=== PATIENT | male | born 1970 | race Caucasian/White ===

== ENCOUNTER 2020-02-19 12:24 | Emergency (ER) | payer SELFPAY ==
[2020-02-19] MEDS ORDERED: LACTULOSE 20 GM/30 ML UCUP ONE (13:04)
[2020-02-19 13:07] LABS: Absolute Lymphocytes (CBC) 1.7 K/uL (0.7-4.9); Hematocrit 42.7 % (39.6-49.0); Lymphocytes % 18.5 % (15.3-44.8); RBC Red Blood Cell Count 4.81 M/uL (4.33-5.43)
[2020-02-19] MEDS ORDERED: ASPIRIN 81 MG CHEWABLE TABLET ONE (13:09)
[2020-02-19 13:29] LABS: ALT/SGPT 35 U/L (12-78); AST/SGOT 17 U/L (15-37); Albumin 3.8 g/dL (3.4-5.0); Alkaline Phosphatase 95 U/L (45-117); BUN Blood Urea Nitrogen 16 mg/dL (7-18); Bicarbonate 28 mmol/L (21-32); Bilirubin Direct 0.1 mg/dL (0-0.2); Bilirubin Total 0.4 mg/dL (0.2-1.0); Glucose Level 112 mg/dL (74-106); NT PRO-BNP 14 pg/mL (<125); Potassium 4.5 mmol/L (3.5-5.1); Protein, Total 7.9 g/dL (6.4-8.2); Sodium Level 138 mmol/L (136-145); Troponin (Emerg Dept Use Only) < 0.02 ng/mL (0.0-0.045)
--- NOTE | 2020-02-19 14:02 | RAD REPORT ---
EXAM DESCRIPTION: RAD - Chest Single View - 02/19/2020 1:52 pm CLINICAL HISTORY: CHEST PAIN COMPARISON: None TECHNIQUE: AP portable chest image was obtained 02/19/2020 1:52 pm . FINDINGS: Lungs are clear. Heart and vasculature are normal. No measurable pleural effusion and no p neumothorax. No acute bony abnormality seen. No acute aortic findings suspected. IMPRESSION: No acute cardiopulmonary process.
--- NOTE | 2020-02-19 14:23 | ER ---
Nurse's Notes [facility] Name: Ra Trinidad Age: 49 yrs Sex: Male : 1970 Arrival Date: 02/19/2020 Time: 12:26 Bed 4 Private MD: Diagnosis: Chest pain, unspecified Presentation: 02/18 12:37 Chief complaint: Patient states: Mild intermittent chest pain for a couple days. Today ll1 while working on siding, chest pain got a lot worse with SOB. Radiation down left arm. Coronavirus screen: Proceed with normal triage. Patient denies a cough. Patient reports shortness of breath or difficulty breathing. Patient denies measured and/or subjective temperature greater than 100.4F prior to today's visit. Patient denies travel on a cruise ship or to a country the [facility] currently lists as an affected area. Patient denies contact with known and/or suspected case of COVID-19. Ebola Screen: Patient denies travel to an Ebola-affected area in the 21 days before illness onset. Initial Sepsis Screen: Does the patient meet any 2 criteria? HR > 90 bpm. No. Patient's initial sepsis screen is negative. Does the patient have a suspected source of infection? No. Patient's initial sepsis screen is negative. Risk Assessment: Do you want to hurt yourself or someone else? Patient reports no desire to harm self or others. Onset of symptoms was February 16, 2020. 12:37 Method Of Arrival: Ambulatory ll1 12:37 Acuity: NAV 3 ll1 Historical: - Allergies: 12:39 No Known Allergies; ll1 - PMHx: 12:39 None; ll1 - PSHx: 12:39 Tonsillectomy; ll1 - Social history:: Patient/guardian denies using alcohol, street drugs, tobacco products. - Family history:: not pertinent. - Hospitalizations: : No recent hospitalization is reported. Screenin:08 Abuse screen: Denies threats or abuse. Denies injuries from another. Nutritional sv screening: No deficits noted. Tuberculosis screening: No symptoms or risk factors identified. Fall Risk None identified. Assessment: 12:50 General: Appears in no apparent distress. comfortable, obese, well developed, Behavior sv is calm, cooperative, appropriate for age. Pain: Complains of pain in mid-sternal area Pain radiates to left arm Pain currently is 2 out of 10 on a pain scale. Pain began today Is intermittent. Neuro: Level of Consciousness is awake, alert, obeys commands, Oriented to person, place, time, situation, Moves all extremities. Full function Gait is steady. Cardiovascular: Patient's skin is warm and dry. Rhythm is sinus rhythm. Respiratory: Reports shortness of breath on exertion Airway is patent Respiratory effort is even, unlabored, Respiratory pattern is regular, symmetrical. Derm: Skin is pink, warm \T\ dry. Vital Signs: 12:37 BP 142 / 104; Pulse 105; Resp 18; Temp 97.4; Pulse Ox 99% ; Pain 2/10; ll1 13:07 BP 157 / 91; Pulse 95; Resp 20; Pulse Ox 97% on R/A; sv 14:00 BP 137 / 77; Pulse 88; Resp 20; Pulse Ox 98% ; sv ED Course: 12:26 Patient arrived in ED. am2 12:34 Victoria Pierre, SKYLAR is Primary Nurse. sv 12:38 Rayshawn Freeman MD is Attending Physician. rn 12:39 Triage completed. ll1 12:40 Arm band placed on Patient placed in an exam room, on a stretcher. ll1 12:44 EKG done, by ED staff, reviewed by Rayshawn Freeman MD. sv 12:50 Patient has correct armband on for positive identification. Placed in gown. Bed in low sv position. Call light in reach. environmental monitoring specialist on. Pulse ox on. NIBP on. 13:01 Basic Metabolic Panel Sent. [facility] 13:01 CBC with Diff Sent. [facility] 13:01 LFT's Sent. [facility] 13:01 Magnesium Sent. [facility] 13:01 NT PRO-BNP Sent. [facility] 13:01 PT-INR Sent. [facility] 13:01 Troponin (emerg Dept Use Only) Sent. 5 13:01 Initial lab(s) drawn, by ut, sent to lab. Inserted saline lock: 20 gauge in right 5 antecubital area, using aseptic technique. Blood collected. 13:48 XRAY Chest (1 view) Sent. sv 13:52 XRAY Chest (1 view) In Process Unspecified. EDMS 14:23 Giovanny Moran MD is Referral Physician. rn 15:08 No provider procedures requiring assistance completed. IV discontinued, intact, em bleeding controlled, No redness/swelling at site. Pressure dressing applied. Administered Medications: 13:07 Drug: Aspirin Chewable Tablet 324 mg Route: PO; sv 13:49 Follow up: Response: No adverse reaction sv Outcome: 14:23 Discharge ordered by . rn 15:08 Discharged to home ambulatory. em 15:08 Condition: good 15:08 Discharge instructions given to patient, Instructed on discharge instructions, follow up and referral plans. Demonstrated understanding of instructions, follow-up care. 15:08 Patient left the ED. em Signatures: Dispatcher [employer] Victoria Reilly RN RN sv Munoz, Edgar, RN RN Rayshawn Carson MD MD rn Martinez, Maria [facility] Pauline Jung Lynsay, RN RN 1
--- NOTE | 2020-02-19 14:23 | EDPHYS ---
Physician Documentation [facility] Name: Ra Trinidad Age: 49 yrs Sex: Male : 1970 Arrival Date: 02/19/2020 Time: 12:26 Bed 4 Private MD: ED Physician Rayshawn Freeman HPI: 02/18 13:55 This 49 yrs old Male presents to ER via Ambulatory with complaints of Chest rn Pain, Shortness Of Breath. 13:55 The patient or guardian reports chest pain that is located primarily in the substernal rn area, anterior chest wall. Onset: yesterday. The pain radiates to the left arm, the left shoulder. The chest pain is described as a heaviness, a pressure. Duration: The patient or guardian reports multiple episodes, that are intermittent, the episodes last approximately 15 minute(s). Modifying factors: The symptoms are alleviated by nothing. the symptoms are aggravated by nothing. Severity of pain: At its worst the pain was moderate in the emergency department the pain has improved. The patient has not experienced similar symptoms in the past. The patient has not recently seen a physician. Historical: - Allergies: 12:39 No Known Allergies; ll1 - PMHx: 12:39 None; ll1 - PSHx: 12:39 Tonsillectomy; ll1 - Social history:: Patient/guardian denies using alcohol, street drugs, tobacco products. - Family history:: not pertinent. - Hospitalizations: : No recent hospitalization is reported. ROS: 13:55 Constitutional: Negative for fever, chills, and weight loss, Eyes: Negative for injury, rn pain, redness, and discharge, Neck: Negative for injury, pain, and swelling, Cardiovascular: + chest pain Respiratory: + sob Abdomen/GI: + nausea MS/Extremity: Negative for injury and deformity, Skin: Negative for injury, rash, and discoloration, Neuro: Negative for headache, weakness, numbness, tingling, and seizure. Exam: 13:55 Constitutional: Overweight male, no acute distress Head/Face: Normocephalic, rn atraumatic. Cardiovascular: Regular rate and rhythm. No pulse deficits. Respiratory: No increased work of breathing, no retractions or nasal flaring. Abdomen/GI: soft, non-tender Skin: Warm, dry MS/ Extremity: Pulses equal, no cyanosis. Neurovascular intact. Full, normal range of motion. Equal circumference. Neuro: Awake and alert, GCS 15, oriented to person, place, time, and situation. Cranial nerves II-XII grossly intact. Motor strength 5/5 in all extremities. Sensory grossly intact. 13:55 ECG was reviewed by the Attending Physician. Vital Signs: 12:37 BP 142 / 104; Pulse 105; Resp 18; Temp 97.4; Pulse Ox 99% ; Pain 2/10; ll1 13:07 BP 157 / 91; Pulse 95; Resp 20; Pulse Ox 97% on R/A; sv 14:00 BP 137 / 77; Pulse 88; Resp 20; Pulse Ox 98% ; sv MDM: 12:38 Patient medically screened. rn 14:21 Differential diagnosis: acute pericarditis, anxiety, coronary artery disease chest wall rn pain, congestive heart failure costochondritis, gastroesophageal reflux disease (GERD), pleurisy, pneumothorax, stable angina. The patient was given aspirin in the Emergency Department. Data reviewed: vital signs, nurses notes, lab test result(s), EKG, radiologic studies, plain films, and as a result, I will admit patient. Test interpretation: by ED physician or midlevel provider: ECG, plain radiologic studies, CXR neg for acute infiltrate. Counseling: I had a detailed discussion with the patient and/or guardian regarding: the historical points, exam findings, and any diagnostic results supporting the discharge/admit diagnosis, lab results, radiology results, the need for further work-up and treatment in the hospital. Response to treatment: the patient is now symptom free, and as a result, I will admit patient. Refusal of service: The patient/guardian displays adequate decision making capability and despite a detailed discussion of alternatives, benefits, risks, and consequences refuses: Admission to the hospital for further work-up and treatment. ED course: Pt does not want to be admitted, requests dc home, trop neg, ecg normal, cxr negative. Had long discussion with patient, understands risks of not being admitted, but is worried about cost. sees dr moran and he plans on outpt w/u with Dr. Moran. Return precautions given and understood. . 02/18 12:51 Order name: Basic Metabolic Panel; Complete Time: 13:31 rn 02/18 12:51 Order name: CBC with Diff; Complete Time: 13: rn 02/18 12:51 Order name: LFT's; Complete Time: 13: rn 02/18 12:51 Order name: Magnesium; Complete Time: : rn 02/18 12:51 Order name: NT PRO-BNP; Complete Time: : rn 02/18 12:51 Order name: PT-INR; Complete Time: 13: rn 02/18 12:51 Order name: Troponin (emerg Dept Use Only); Complete Time: : rn 02/18 12:51 Order name: XRAY Chest (1 view); Complete Time: 14:10 rn 02/18 12:51 Order name: EKG; Complete Time: 12: rn 02/18 12:51 Order name: Cardiac monitoring; Complete Time: 13: rn 02/18 12:51 Order name: EKG - Nurse/Tech; Complete Time: 13: rn 02/18 12:51 Order name: IV Saline Lock; Complete Time: 13: rn 02/18 12:51 Order name: Labs collected and sent; Complete Time: : rn 02/18 12:51 Order name: O2 Per Protocol; Complete Time: : rn 02/18 12:51 Order name: O2 Sat Monitoring; Complete Time: 13:00 rn EC:55 Rate is 98 beats/min. Rhythm is regular. QRS Adel is Normal. CT interval is normal. QRS rn interval is normal. QT interval is normal. No Q waves. T waves are Normal. No ST changes noted. Clinical impression: Normal ECG. Interpreted by me. Reviewed by me. Administered Medications: 13:07 Drug: Aspirin Chewable Tablet 324 mg Route: PO; sv 13:49 Follow up: Response: No adverse reaction sv Disposition: 02/19/20 14:23 Discharged to Home. Impression: Chest pain, unspecified. - Condition is Stable. - Discharge Instructions: Nonspecific Chest Pain. - Medication Reconciliation Form, Thank You Letter, Antibiotic Education, Prescription Opioid Use form. - Follow up: Giovanny Moran MD; When: As needed; Reason: Recheck today's complaints, Re-evaluation by your physician. - Problem is an ongoing problem. - Symptoms have improved. Signatures: Dispatcher [employer] Victoria Reilly RN RN sv Munoz, Edgar, RN RN em Rayshawn Freeman MD MD rn Lewis, Lynsay, RN RN ll1 Corrections: (The following items were deleted from the chart) 15:08 14:23 02/19/2020 14:23 Discharged to Home. Impression: Chest pain, unspecified. em Condition is Stable. Forms are Medication Reconciliation Form, Thank You Letter, Antibiotic Education, Prescription Opioid Use. Follow up: Giovanny Moran; When: As needed; Reason: Recheck today's complaints, Re-evaluation by your physician. Problem is an ongoing problem. Symptoms have improved. rn
[2020-02-19 15:17] VITALS: TEMP 97.4
[2020-02-19 15:20] VITALS: BP 137/77; O2SAT 98
--- NOTE | 2020-02-20 11:38 | EKG ---
Test Date: 2020-02-19 Test Time: 12:43:02 Therapeutic Dietitian: HOLLI MEASUREMENT RESULTS: Intervals: Rate: 98 VA: 152 QRSD: 102 QT: 338 QTc: 431 Ava: P: 53 VA: 152 QRS: 17 T: 25 INTERPRETIVE STATEMENTS: Normal sinus rhythm Normal ECG Compared to ECG 11/07/2006 18:20:10 Sinus arrhythmia no longer present Electronically Signed On 02-20-20 11:35:06 CDT by Giovanny Moran
== END 2020-02-19 15:08 | disposition home or self-care (01) ==
LOC: ER 12:24
DX: R07.9 Chest pain, unspecified (principal)
CPT/HCPCS: 36415; 71045; 80048; 80076; 83735; 83880; 84484; 85025; 85610; 93005; 99284